=== PATIENT | male | born 1960 | race Caucasian/White ===

== ENCOUNTER 2017-03-07 05:32 | Outpatient (CLI) | payer MEDICAID ==
[~2017-03-07] VITALS: Ht 180.3 cm; Wt 112.9 kg
[~2017-03-07 05:32] MED LIST: CYCL10TA9 PO; CYCL5TAB11 PO; HYDR1TAB PO; MELO-198 PO; MTF500T; MTP25TSR; PRD50T PO
[2017-03-07] MEDS ORDERED: METF1000 PO (10:11)
[2017-03-07] MEDS ORDERED: METO50TA2 PO (10:11)
[2017-03-07] MEDS ORDERED: MECL-106 PO (10:11)
[2017-03-07] MEDS ORDERED: GABA-488 PO (10:11)
== END 2017-03-07 10:13 ==
LOC: PREOP 05:32
PROVIDERS: ATTEND Surgery
DX: Z01.818 Encounter for other preprocedural examination (principal); K92.1 Melena

== ENCOUNTER 2017-03-12 06:46 | Day surgery (SDC) | payer MEDICAID, OTHER ==
[~2017-03-12] VITALS: Ht 180.3 cm; Wt 112.9 kg
[~2017-03-12 06:46] MED LIST changes: +GABA-488 PO; +MECL-106 PO; +METF1000 PO; +METO50TA2 PO
[2017-03-12] MEDS ORDERED: NS IV 1000 ML 1,000 ML IV STA (07:00)
[2017-03-12] MEDS ORDERED: NS IV 1000 ML 1,000 ML ONE (07:09)
[2017-03-12 07:28] VITALS: BP 126/86
--- NOTE | 2017-03-12 07:39 | Progress Note-Pre Operative ---
Pre-Operative Progress Note H&P Reviewed The H&P was reviewed, patient examined and no changes noted. Date H&P Reviewed: March 12, 2017 Time H&P Reviewed: 07:39 Pre-Operative Diagnosis: family history colon cancer YOSEF MORENO DO March 12, 2017 07:39
[2017-03-12] MEDS ORDERED: PROPOFOL INJECTION 50 ML IV ONE (08:13)
[2017-03-12] MEDS ORDERED: MIDAZOLAM 2 MG/2 ML (VERSED) VIAL ONE ×2 (08:13→08:17)
--- NOTE | 2017-03-12 08:44 | Progress Note-Post Operative ---
Post-Operative Progess Note Surgeon (s)/Planning Rn (s) Surgeon YOSEF MORENO DO Planning Rn: na Pre-Operative Diagnosis family history colon cancer, blood in stool Post-Operative Diagnosis hemorrhoids Post-Op Procedure Note Date of Procedure: March 12, 2017 Name of Procedure Performed: colonoscopy Description of the Procedure: colonoscopy Findings of the Procedure hemorrhoids Anesthesia Type per corn grower Estimated blood loss (mL): none Specimen(s) collected/removed none YOSEF MORENO DO March 12, 2017 08:44
--- NOTE | 2017-03-12 08:46 | Discharge Inst-Simple/Standard ---
Discharge Inst-Standard Patient Instructions/Follow Up Plan of Care/Instructions/FU: repeat colonoscopy in 5 years unless change in condition and should be re-evaluated at that time. Activity as Tolerated: Yes Discharge Diet: Regular Diet YOSEF MORENO DO March 12, 2017 08:46
[2017-03-12 09:05] VITALS: BP 112/70
[2017-03-12 09:35] VITALS: BP 117/68
[2017-03-12 09:45] VITALS: BP 117/68
--- NOTE | 2017-03-12 11:34 | OPERATIVE REPORT ---
DATE OF SERVICE: 03/12/2017 PREOPERATIVE DIAGNOSES: Family history of colon cancer and blood in stools. POSTOPERATIVE DIAGNOSIS: Hemorrhoids. PROCEDURE: Colonoscopy. SURGEON: Yosef Hollis DO ANESTHESIA: Per ADULT PROTECTIVE CASEWORKER. ESTIMATED BLOOD LOSS: Minimal. COMPLICATIONS: None. INDICATIONS: The patient is a 56-year-old male with family history of colon cancer and has had some blood in his stools, he felt secondary to hemorrhoids. He was explained risks and benefits of procedure and wished to proceed with the procedure. Consent was in the chart. PROCEDURE IN DETAIL: The patient was taken to the endoscopy suite, placed in the left lateral recumbent position. A timeout was performed. Digital rectal exam was performed. There were no palpable polyps, masses or ulcerations. Some hemorrhoidal disease present. The scope was inserted into the rectum and advanced all the way to the cecum with minimal difficulty. Prep was adequate. There were no polyps, masses or ulcerations of the cecum, ascending, transverse, descending and sigmoid colon. The scope was then continued to be withdrawn back into the rectum, where it was also retroflexed, noting no other pathology. The scope was returned to its normal position and slowly withdrawn until completely removed. RECOMMENDATIONS: The patient's blood in the stools previously is most likely secondary to hemorrhoidal disease and he will need a repeat colonoscopy in 5 years due to family history of colon cancer. If he has any problems prior to that, he should be reevaluated at that time. Job ID: [id number] DocumentID: [id number] Dictated Date: 03/12/2017 08:47:18 Canoe Inspector Date: 03/12/2017 11:34:19 Dictated By: YOSEF HOLLIS DO
== END 2017-03-12 09:45 | disposition home or self-care (01) ==
LOC: ENDO 06:46
PROVIDERS: ATTEND Surgery
DX: K92.1 Melena (principal); K64.9 Unspecified hemorrhoids; Z80.0 Family history of malignant neoplasm of digestive organs; R73.03 Prediabetes; Z79.84 Long term (current) use of oral hypoglycemic drugs